=== PATIENT | male | born 1950 | race Caucasian/White ===

== ENCOUNTER → 2020-01-29 | Outpatient (CLI) | payer BC ==
[~2020-01-29] MED LIST: ASPI-496 PO; CARV3.122 PO; CHOL100011 PO; OMEG-14 PO; ROSU10TA2 PO; TADA5TAB2 PO
== END | disposition home or self-care (01) ==
LOC: CVU 07:30
PROVIDERS: ATTEND Surgery
DX: I72.3 Aneurysm of iliac artery (principal); I77.811 Abdominal aortic ectasia; I77.810 Thoracic aortic ectasia; I25.2 Old myocardial infarction; Z95.5 Presence of coronary angioplasty implant and graft
CPT/HCPCS: 93978